=== PATIENT | male | born 1960 | race Caucasian/White ===

== ENCOUNTER 2022-07-14 21:10 | Emergency (ER) | payer BC ==
[2022-07-14] MEDS ORDERED: Sodium Chloride 0.9% 10 ML Syringe FLUSH PRN (21:18)
[2022-07-14 21:33] LABS: BASOPHILS PERCENT AUTO 0.2 % (0.0-1.0); EOSINOPHILS PERCENT AUTO 2.7 % (1.0-3.0); HEMATOCRIT 32.4 % (40.0-54.0); HEMOGLOBIN 9.9 g/dL (14.0-18.0); LYMPHOCYTES PERCENT AUTO 13.1 % (20.5-50.1); MEAN CORPUSCULAR HEMOGLOBIN 27.3 pg (27.0-34.0); MEAN CORPUSCULAR HGB CONC 30.6 g/dL (33.0-35.0); MEAN CORPUSCULAR VOLUME 89.5 fL (80-100); PLATELET COUNT,PLT 192 10^3/uL (150-450); RED BLOOD CELL COUNT 3.62 10^6/uL (4.6-6.2); WHITE BLOOD CELL COUNT,WBC 8.6 10^3/uL (5.0-10.0)
[2022-07-14 21:50] LABS: INR 1.4 (0.9-1.2); PROTHROMBIN TIME 14.4 SEC (9.0-12.0); PTT,PARTIAL THROMBOPLSTIN TIME 27.9 SEC (22.0-34.0)
[2022-07-14 21:57] LABS: ANION GAP 8.7 mEq/L (7-13); BILIRUBIN TOTAL 0.8 mg/dL (0.2-1.0); BUN/CREATININE RATIO 26.1 (No establ ref range); CALCIUM 8.3 mg/dL (8.5-10.1); CREATININE 1.53 mg/dL (0.70-1.30); EST CRCL DRUG DOSING (CG) 54.95 mL/min; MAGNESIUM 2.1 mg/dL (1.8-2.4); POTASSIUM,K 3.7 mmol/L (3.5-5.1); PROTEIN TOTAL,TP 6.8 g/dL (6.4-8.2)
[2022-07-14 21:59] LABS: A/G RATIO 0.79
[2022-07-14 22:00] LABS: LACTIC ACID 2.4 mmol/L (0.4-2.0)
[2022-07-14] MEDS ORDERED: Iopamidol 755 Mg/ML 100 ML Bottle IVPUSH ONE ×2 (22:00→22:02)
[2022-07-14 23:11] VITALS: BP 115/68; PULSE 93
[2022-07-14 23:27] LABS: APPEARANCE,URINE CLEAR (CLEAR); BILIRUBIN,URINE NEGATIVE (NEGATIVE); COLOR,URINE YELLOW (YELLOW); GLUCOSE,URINE NEGATIVE (NEGATIVE); KETONES,URINE NEGATIVE (NEGATIVE); LEUKOCYTE ESTERASE,URINE NEGATIVE (NEGATIVE); NITRITE,URINE NEGATIVE (NEGATIVE); OCCULT BLOOD,URINE NEGATIVE (NEGATIVE); PROTEIN,URINE NEGATIVE (NEGATIVE); UROBILINOGEN,URINE 0.2 mg/dL (0.2-1.0)
[2022-07-15] MEDS ORDERED: Sodium Chloride 0.9% 1,000 ML IV ONE (00:50)
[2022-07-15] MEDS ORDERED: Heparin Sodium 5,000 Units/ML Vial IVPUSH ONE (01:02)
[2022-07-15] MEDS ORDERED: Heparin Sodium/0.45% NaCl 25,000 UNITS/500 ML BAG IV SCH (01:15)
== END 2022-07-15 01:46 ==
LOC: DL.ED 21:10
DX: R18.8 Other ascites (principal); N17.9 Acute kidney failure, unspecified; R06.00 Dyspnea, unspecified; R79.1 Abnormal coagulation profile; R93.7 Abnormal findings on diagnostic imaging of other parts of musculoskeletal system; I87.2 Venous insufficiency (chronic) (peripheral); K76.0 Fatty (change of) liver, not elsewhere classified; E66.01 Morbid (severe) obesity due to excess calories; I48.91 Unspecified atrial fibrillation; I13.0 Hypertensive heart and chronic kidney disease with heart failure and stage 1 through stage 4 chronic kidney disease, or unspecified chronic kidney disease; E11.22 Type 2 diabetes mellitus with diabetic chronic kidney disease; N18.2 Chronic kidney disease, stage 2 (mild); I50.9 Heart failure, unspecified; M19.90 Unspecified osteoarthritis, unspecified site; Z88.8 Allergy status to other drugs, medicaments and biological substances; Z79.01 Long term (current) use of anticoagulants; Z79.82 Long term (current) use of aspirin; Z79.4 Long term (current) use of insulin; Z79.899 Other long term (current) drug therapy; Z95.5 Presence of coronary angioplasty implant and graft; Z95.0 Presence of cardiac pacemaker; Z68.44 Body mass index [BMI] 60.0-69.9, adult
CPT/HCPCS: 36415; 71260; 74177; 80053; 81003; 82150; 83605; 83690; 83735; 83880; 84145; 84484; 85025; 85610; 85730; 86140; 87040; 93005; 93010; 96365; 96376; 99285; 99285-25; J1644; J7030; Q9967

== ENCOUNTER 2022-12-23 18:50 | Inpatient (IN) | payer BC ==
[2022-12-23] MEDS ORDERED: Sodium Chloride 0.9% 10 ML Syringe FLUSH PRN (18:58)
[2022-12-23 19:16] LABS: HEMATOCRIT 32.5 % (40.0-54.0); HEMOGLOBIN 10.1 g/dL (14.0-18.0); MEAN CORPUSCULAR HEMOGLOBIN 28.2 pg (27.0-34.0); MEAN CORPUSCULAR HGB CONC 31.1 g/dL (33.0-35.0); MEAN CORPUSCULAR VOLUME 90.8 fL (80-100); PLATELET COUNT,PLT 259 10^3/uL (150-450); RED BLOOD CELL COUNT 3.58 10^6/uL (4.6-6.2); WHITE BLOOD CELL COUNT,WBC 8.5 10^3/uL (5.0-10.0)
[2022-12-23 19:25] LABS: BASOPHILS PERCENT AUTO 0.2 % (0.0-1.0); EOSINOPHILS PERCENT AUTO 3.4 % (1.0-3.0); MONOCYTES PERCENT AUTO 10.8 % (2-8)
[2022-12-23 19:26] LABS: EOSINOPHILS PERCENT MAN 4 % (1-3); LYMPHOCYTES PERCENT MAN 12 % (20-50); MONOCYTES PERCENT MAN 4 % (2-8); SEG NEUTROPHILS PERCENT MAN 80 % (42-75)
[2022-12-23 19:31] LABS: A/G RATIO 0.55; ALBUMIN 2.7 g/dL (3.4-5.0); ANION GAP 12.3 mEq/L (7-13); BILIRUBIN TOTAL 0.5 mg/dL (0.2-1.0); BUN/CREATININE RATIO 24.7 (No establ ref range); C-REACTIVE PROTEIN 3.37 ng/dL (<=0.30); CALCIUM 8.9 mg/dL (8.5-10.1); CREATININE 1.98 mg/dL (0.70-1.30); EST CRCL DRUG DOSING (CG) 41.91 mL/min; MAGNESIUM 2.5 mg/dL (1.8-2.4); POTASSIUM,K 4.3 mmol/L (3.5-5.1); PROTEIN TOTAL,TP 7.6 g/dL (6.4-8.2)
[2022-12-23 19:34] LABS: LACTIC ACID 1.6 mmol/L (0.4-2.0)
[2022-12-23] MEDS ORDERED: 50% Dextrose in Water 50 ML Syringe IVPUSH ONE (20:24)
[2022-12-23 20:26] LABS: INR 1.7 (0.9-1.2); PROTHROMBIN TIME 16.7 SEC (9.0-12.0)
[2022-12-23] MEDS ORDERED: Albuterol/Ipratropium 3.0-0.5 MG/3 ML Neb Soln NEB PRN (20:32)
[2022-12-23] MEDS ORDERED: HYDROmorphone 0.5 MG/0.5 ML Syringe IVPUSH PRN (20:32)
[2022-12-23] MEDS ORDERED: Acetaminophen/oxyCODONE 325-5 MG Tab PO PRN (20:32)
[2022-12-23] MEDS ORDERED: Naloxone 2 MG/2 ML Syringe IVPUSH PRN (20:32)
[2022-12-23] MEDS ORDERED: Ondansetron 4 MG/2 ML SDV IVPUSH PRN (20:32)
[2022-12-23] MEDS ORDERED: Albuterol 6.7 GM Inhaler INH PRN (20:39)
[2022-12-23] MEDS ORDERED: Glucagon,Human Recombinant 1 MG Vial IM PRN (20:42)
[2022-12-23] MEDS ORDERED: 50% Dextrose in Water 50 ML Syringe IVPUSH PRN (20:42)
[2022-12-23] MEDS ORDERED: Furosemide 100 MG in Sodium Chloride 0.9% 90 ML IV SCH (20:45)
[2022-12-23] MEDS ORDERED: Heparin Sodium 5,000 Units/ML Vial SUBCUT ONE (21:01)
[2022-12-23 21:04] LABS: T4 FREE 0.83 ng/dL (0.76-1.46); TSH ULTRASENSITIVE 4.12 uIU/mL (0.36-3.74)
[2022-12-23 21:55] LABS: APPEARANCE,URINE CLEAR (CLEAR); BILIRUBIN,URINE NEGATIVE (NEGATIVE); COLOR,URINE DARK YELLOW (YELLOW); GLUCOSE,URINE NEGATIVE (NEGATIVE); KETONES,URINE NEGATIVE (NEGATIVE); LEUKOCYTE ESTERASE,URINE NEGATIVE (NEGATIVE); NITRITE,URINE NEGATIVE (NEGATIVE); OCCULT BLOOD,URINE NEGATIVE (NEGATIVE); PH,URINE 5.5 (5.0-9.0); PROTEIN,URINE NEGATIVE (NEGATIVE); UROBILINOGEN,URINE 0.2 mg/dL (0.2-1.0)
[2022-12-23 21:57] LABS: BENZODIAZEPINE,URINE NEGATIVE (NEGATIVE); MDMA (ECSTASY), URINE NEGATIVE (NEGATIVE); METHADONE,URINE NEGATIVE (NEGATIVE); METHAMPHETAMINES,URINE NEGATIVE (NEGATIVE); OPIATES,URINE NEGATIVE (NEGATIVE)
[2022-12-23 21:58] LABS: AMPHETAMINES,URINE NEGATIVE (NEGATIVE); BARBITURATES,URINE NEGATIVE (NEGATIVE); OXYCODONE,URINE NEGATIVE (NEGATIVE); PHENCYCLIDINE,URINE NEGATIVE (NEGATIVE); TCA,URINE NEGATIVE (NEGATIVE)
[2022-12-23 22:58] LABS: BACTERIA,URINE RARE /HPF (0-FEW/HPF); EPITHELIAL CELLS,URINE FEW /HPF (NOT SEEN); RBC,URINE 0-5 /HPF (0-5); WBC,URINE 0-5 /HPF (0-5/HPF)
[2022-12-23] MEDS: Albumin Human 25 GM in Premix Bag 1 BAG IV SCH (23:00)
[2022-12-23] MEDS: Potassium Chloride 10 MEQ Tab.ER PO SCH (23:00)
[2022-12-23] MEDS ORDERED: Dextrose 5%-0.9% NaCl 1,000 ML IV SCH (23:45)
[2022-12-24] MEDS ORDERED: hydrALAZINE 20 MG/ML SDV IVPUSH PRN (00:17)
[2022-12-24] MEDS ORDERED: Metoprolol Tartrate 5 MG/5 ML SDV IVPUSH PRN (00:17)
[2022-12-24] MEDS: Insulin Lispro 100 Units/ML 3 ML Vial SUBCUT SCH ×13 (01:00→17:26)
[2022-12-24] MEDS: Albumin Human 25 GM in Premix Bag 1 BAG IV SCH ×4 (03:00→20:31)
[2022-12-24 05:53] LABS: BASOPHILS PERCENT AUTO 0.4 % (0.0-1.0); EOSINOPHILS PERCENT AUTO 4.3 % (1.0-3.0); HEMATOCRIT 30.4 % (40.0-54.0); HEMOGLOBIN 9.4 g/dL (14.0-18.0); LYMPHOCYTES PERCENT AUTO 13.4 % (20.5-50.1); MEAN CORPUSCULAR HGB CONC 30.9 g/dL (33.0-35.0); MEAN CORPUSCULAR VOLUME 90.5 fL (80-100); MONOCYTES PERCENT AUTO 10.2 % (2-8); NEUTROPHILS PERCENT AUTO 71.7 % (42.2-75.2); PLATELET COUNT,PLT 252 10^3/uL (150-450); RED BLOOD CELL COUNT 3.36 10^6/uL (4.6-6.2); WHITE BLOOD CELL COUNT,WBC 7.5 10^3/uL (5.0-10.0)
[2022-12-24 06:02] LABS: INR 1.7 (0.9-1.2); PROTHROMBIN TIME 17.1 SEC (9.0-12.0)
[2022-12-24] MEDS: Pantoprazole 40 MG Tab.CR PO SCH ×2 (06:07→15:18)
[2022-12-24 06:10] LABS: ALBUMIN 2.9 g/dL (3.4-5.0); ANION GAP 12.6 mEq/L (7-13); BILIRUBIN TOTAL 0.6 mg/dL (0.2-1.0); BUN/CREATININE RATIO 25.6 (No establ ref range); CALCIUM 8.5 mg/dL (8.5-10.1); CREATININE 1.95 mg/dL (0.70-1.30); EST CRCL DRUG DOSING (CG) 42.56 mL/min; MAGNESIUM 2.5 mg/dL (1.8-2.4); POTASSIUM,K 4.6 mmol/L (3.5-5.1); PROTEIN TOTAL,TP 7.3 g/dL (6.4-8.2)
[2022-12-24 06:25] LABS: A/G RATIO 0.66
[2022-12-24] MEDS ORDERED: Insulin Lispro 100 Units/ML 3 ML Vial SUBCUT SCH (08:00)
[2022-12-24] MEDS ORDERED: Emollient Combination No.71 177 ML Bottle TOP PRN (08:38)
[2022-12-24] MEDS ORDERED: Levothyroxine 100 MCG Tab PO ONE (08:39)
[2022-12-24] MEDS ORDERED: Spironolactone 25 MG Tab PO SCH (09:00)
[2022-12-24] MEDS: Loratadine 10 MG Tab PO SCH (10:40)
[2022-12-24] MEDS: Digoxin 250 MCG Tab PO SCH (10:41)
[2022-12-24] MEDS: Acetaminophen 325 MG Tab PO PRN ×3 (10:41→20:30)
[2022-12-24] MEDS: Sertraline 50 MG Tab PO SCH (10:43)
[2022-12-24] MEDS: Metoprolol Succinate 50 MG Tab.ER PO SCH (10:48)
[2022-12-24] MEDS: Ezetimibe 10 MG Tab PO SCH (10:49)
[2022-12-24] MEDS: Potassium Chloride 10 MEQ Tab.ER PO SCH ×3 (10:59→17:23)
[2022-12-24] MEDS ORDERED: Phytonadione 5 MG Tab ONE (11:36)
[2022-12-24] MEDS: Phytonadione 5 MG Tab PO ONE ×2 (13:07→13:17)
[2022-12-24] MEDS: Menthol 10%/Methyl Salicylate 15% 85 GM Tube TOP PRN (23:00)
[2022-12-25] MEDS: Menthol 10%/Methyl Salicylate 15% 85 GM Tube TOP PRN ×2 (04:30→22:32)
[2022-12-25 05:45] LABS: BASOPHILS PERCENT AUTO 0.4 % (0.0-1.0); EOSINOPHILS PERCENT AUTO 4.9 % (1.0-3.0); HEMATOCRIT 30.6 % (40.0-54.0); HEMOGLOBIN 9.5 g/dL (14.0-18.0); LYMPHOCYTES PERCENT AUTO 12.2 % (20.5-50.1); MEAN CORPUSCULAR VOLUME 90.3 fL (80-100); MONOCYTES PERCENT AUTO 10.4 % (2-8); NEUTROPHILS PERCENT AUTO 72.1 % (42.2-75.2); PLATELET COUNT,PLT 240 10^3/uL (150-450); RED BLOOD CELL COUNT 3.39 10^6/uL (4.6-6.2); WHITE BLOOD CELL COUNT,WBC 7.8 10^3/uL (5.0-10.0)
[2022-12-25] MEDS: Levothyroxine 150 MCG Tab PO SCH (05:49)
[2022-12-25] MEDS: Pantoprazole 40 MG Tab.CR PO SCH ×3 (05:49→15:58)
[2022-12-25 05:55] LABS: INR 1.3 (0.9-1.2); PROTHROMBIN TIME 13.4 SEC (9.0-12.0)
[2022-12-25 06:05] LABS: A/G RATIO 0.77; ALBUMIN 3.3 g/dL (3.4-5.0); ANION GAP 12.9 mEq/L (7-13); BILIRUBIN TOTAL 0.9 mg/dL (0.2-1.0); CALCIUM 8.4 mg/dL (8.5-10.1); CREATININE 1.96 mg/dL (0.70-1.30); EST CRCL DRUG DOSING (CG) 42.34 mL/min; MAGNESIUM 2.6 mg/dL (1.8-2.4); POTASSIUM,K 4.9 mmol/L (3.5-5.1); PROTEIN TOTAL,TP 7.6 g/dL (6.4-8.2)
[2022-12-25] MEDS: Potassium Chloride 10 MEQ Tab.ER PO SCH ×3 (08:16→17:18)
[2022-12-25] MEDS: Insulin Lispro 100 Units/ML 3 ML Vial SUBCUT SCH ×3 (08:17→17:19)
[2022-12-25] MEDS: Ezetimibe 10 MG Tab PO SCH (10:22)
[2022-12-25] MEDS: Sertraline 50 MG Tab PO SCH (10:23)
[2022-12-25] MEDS: Loratadine 10 MG Tab PO SCH (10:23)
[2022-12-25] MEDS: Digoxin 250 MCG Tab PO SCH (10:23)
[2022-12-25] MEDS: Metoprolol Succinate 50 MG Tab.ER PO SCH (10:24)
[2022-12-25] MEDS: Acetaminophen 325 MG Tab PO PRN ×2 (17:45→22:03)
[2022-12-26] MEDS: Levothyroxine 150 MCG Tab PO SCH (05:57)
[2022-12-26] MEDS: Pantoprazole 40 MG Tab.CR PO SCH ×2 (05:57→15:28)
[2022-12-26 06:31] LABS: BASOPHILS PERCENT AUTO 0.2 % (0.0-1.0); EOSINOPHILS PERCENT AUTO 5.8 % (1.0-3.0); HEMATOCRIT 30.6 % (40.0-54.0); HEMOGLOBIN 9.5 g/dL (14.0-18.0); MEAN CORPUSCULAR HEMOGLOBIN 28.1 pg (27.0-34.0); MEAN CORPUSCULAR VOLUME 90.5 fL (80-100); PLATELET COUNT,PLT 237 10^3/uL (150-450); RED BLOOD CELL COUNT 3.38 10^6/uL (4.6-6.2); WHITE BLOOD CELL COUNT,WBC 8.8 10^3/uL (5.0-10.0)
[2022-12-26 06:41] LABS: INR 1.2 (0.9-1.2); PROTHROMBIN TIME 12.5 SEC (9.0-12.0)
[2022-12-26 06:46] LABS: ALBUMIN 3.1 g/dL (3.4-5.0); ANION GAP 14.3 mEq/L (7-13); BILIRUBIN TOTAL 1.1 mg/dL (0.2-1.0); BUN/CREATININE RATIO 28.8 (No establ ref range); CALCIUM 8.4 mg/dL (8.5-10.1); CREATININE 1.84 mg/dL (0.70-1.30); EST CRCL DRUG DOSING (CG) 45.1 mL/min; MAGNESIUM 2.7 mg/dL (1.8-2.4); POTASSIUM,K 5.3 mmol/L (3.5-5.1); PROTEIN TOTAL,TP 7.5 g/dL (6.4-8.2)
[2022-12-26 06:54] LABS: A/G RATIO 0.7
[2022-12-26] MEDS: Insulin Lispro 100 Units/ML 3 ML Vial SUBCUT SCH ×3 (08:13→16:50)
[2022-12-26] MEDS: Ezetimibe 10 MG Tab PO SCH (08:15)
[2022-12-26] MEDS: Menthol 10%/Methyl Salicylate 15% 85 GM Tube TOP PRN ×2 (08:15→15:30)
[2022-12-26] MEDS: Sertraline 50 MG Tab PO SCH (08:16)
[2022-12-26] MEDS: Loratadine 10 MG Tab PO SCH (08:16)
[2022-12-26] MEDS: Metoprolol Succinate 50 MG Tab.ER PO SCH (08:16)
[2022-12-26] MEDS: Digoxin 250 MCG Tab PO SCH (08:17)
[2022-12-26] MEDS: Potassium Chloride 10 MEQ Tab.ER PO SCH ×2 (08:17→12:29)
[2022-12-26] MEDS: Acetaminophen 325 MG Tab PO PRN (13:54)
[2022-12-26] MEDS ORDERED: Lidocaine 1% 5 ML VIAL INJECT ONE (14:43)
[2022-12-26] MEDS ORDERED: Lidocaine 1% 5 ML VIAL ONE (14:45)
[2022-12-26] MEDS: Albumin Human 25 GM in Premix Bag 1 BAG IV SCH ×2 (14:54→19:52)
[2022-12-26] MEDS ORDERED: cefTRIAXone 2 GM Vial IVPUSH ONE (16:12)
[2022-12-27] MEDS: Albumin Human 25 GM in Premix Bag 1 BAG IV SCH ×2 (02:00→08:17)
[2022-12-27] MEDS: Pantoprazole 40 MG Tab.CR PO SCH ×3 (04:48→15:43)
[2022-12-27] MEDS: Levothyroxine 150 MCG Tab PO SCH ×2 (04:48→05:34)
[2022-12-27 06:33] LABS: HEMATOCRIT 30.1 % (40.0-54.0); HEMOGLOBIN 9.3 g/dL (14.0-18.0); MEAN CORPUSCULAR HEMOGLOBIN 28.1 pg (27.0-34.0); MEAN CORPUSCULAR HGB CONC 30.9 g/dL (33.0-35.0); MEAN CORPUSCULAR VOLUME 90.9 fL (80-100); PLATELET COUNT,PLT 232 10^3/uL (150-450); RED BLOOD CELL COUNT 3.31 10^6/uL (4.6-6.2); WHITE BLOOD CELL COUNT,WBC 8.9 10^3/uL (5.0-10.0)
[2022-12-27 06:37] LABS: BASOPHILS PERCENT AUTO 0.6 % (0.0-1.0); EOSINOPHILS PERCENT AUTO 6.3 % (1.0-3.0); LYMPHOCYTES PERCENT AUTO 9.3 % (20.5-50.1); MONOCYTES PERCENT AUTO 9.8 % (2-8)
[2022-12-27 06:47] LABS: INR 1.2 (0.9-1.2); PROTHROMBIN TIME 12.5 SEC (9.0-12.0)
[2022-12-27 06:55] LABS: ALBUMIN 3.3 g/dL (3.4-5.0); ANION GAP 13.7 mEq/L (7-13); CALCIUM 8.4 mg/dL (8.5-10.1); CREATININE 1.81 mg/dL (0.70-1.30); EST CRCL DRUG DOSING (CG) 45.85 mL/min; MAGNESIUM 2.8 mg/dL (1.8-2.4); POTASSIUM,K 5.7 mmol/L (3.5-5.1); PROTEIN TOTAL,TP 7.3 g/dL (6.4-8.2)
[2022-12-27 06:56] LABS: A/G RATIO 0.83
[2022-12-27 07:07] LABS: BAND PERCENT MAN 5 %; BASOPHILS PERCENT MAN 2; EOSINOPHILS PERCENT MAN 7 % (1-3); LYMPHOCYTES PERCENT MAN 8 % (20-50); METAMYELOCYTE PERCENT MAN 1; MONOCYTES PERCENT MAN 9 % (2-8); MYELOCYTE PERCENT MAN 1; PLATELET COUNT ESTIMATE ADEQUATE; SEG NEUTROPHILS PERCENT MAN 67 % (42-75)
[2022-12-27] MEDS: Insulin Lispro 100 Units/ML 3 ML Vial SUBCUT SCH ×3 (08:07→16:07)
[2022-12-27] MEDS: Ezetimibe 10 MG Tab PO SCH (08:09)
[2022-12-27] MEDS: Metoprolol Succinate 50 MG Tab.ER PO SCH (08:10)
[2022-12-27] MEDS: Sertraline 50 MG Tab PO SCH (08:10)
[2022-12-27] MEDS: Loratadine 10 MG Tab PO SCH (08:10)
[2022-12-27] MEDS: Digoxin 250 MCG Tab PO SCH (08:10)
[2022-12-27] MEDS ORDERED: Non-Formulary Medication 1 Each (Sacubitril/Valsartan 1 EACH Tablet) PO SCH (09:00)
[2022-12-27] MEDS ORDERED: Bumetanide 1 MG Tab PO SCH (09:00)
[2022-12-27] MEDS: cefTRIAXone 2 GM Vial IVPUSH SCH (09:23)
[2022-12-27] MEDS ORDERED: Warfarin 5 MG Tab PO SCH (14:00)
[2022-12-27] MEDS: Acetaminophen 325 MG Tab PO PRN (20:25)
[2022-12-27] MEDS: Bumetanide 1 MG Tab PO SCH (20:25)
[2022-12-28] MEDS: Acetaminophen 325 MG Tab PO PRN (00:59)
[2022-12-28] MEDS: Levothyroxine 150 MCG Tab PO SCH (05:17)
[2022-12-28] MEDS: Pantoprazole 40 MG Tab.CR PO SCH (05:17)
[2022-12-28 06:13] LABS: BASOPHILS PERCENT AUTO 0.4 % (0.0-1.0); EOSINOPHILS PERCENT AUTO 6.2 % (1.0-3.0); HEMATOCRIT 29.6 % (40.0-54.0); HEMOGLOBIN 9.2 g/dL (14.0-18.0); MEAN CORPUSCULAR HEMOGLOBIN 28.2 pg (27.0-34.0); MEAN CORPUSCULAR HGB CONC 31.1 g/dL (33.0-35.0); MEAN CORPUSCULAR VOLUME 90.8 fL (80-100); MONOCYTES PERCENT AUTO 9.6 % (2-8); NEUTROPHILS PERCENT AUTO 72.8 % (42.2-75.2); PLATELET COUNT,PLT 224 10^3/uL (150-450); RED BLOOD CELL COUNT 3.26 10^6/uL (4.6-6.2); WHITE BLOOD CELL COUNT,WBC 8.4 10^3/uL (5.0-10.0)
[2022-12-28 06:24] LABS: ALBUMIN 3.1 g/dL (3.4-5.0); ANION GAP 14.9 mEq/L (7-13); BILIRUBIN TOTAL 0.6 mg/dL (0.2-1.0); BUN/CREATININE RATIO 33.5 (No establ ref range); CALCIUM 8.3 mg/dL (8.5-10.1); CREATININE 1.88 mg/dL (0.70-1.30); EST CRCL DRUG DOSING (CG) 44.14 mL/min; MAGNESIUM 2.6 mg/dL (1.8-2.4); POTASSIUM,K 3.9 mmol/L (3.5-5.1)
[2022-12-28 06:28] LABS: A/G RATIO 0.79
[2022-12-28 06:37] LABS: INR 1.2 (0.9-1.2); PROTHROMBIN TIME 12.1 SEC (9.0-12.0)
[2022-12-28] MEDS: Insulin Lispro 100 Units/ML 3 ML Vial SUBCUT SCH (08:10)
[2022-12-28] MEDS: cefTRIAXone 2 GM Vial IVPUSH SCH (08:10)
[2022-12-28] MEDS: Loratadine 10 MG Tab PO SCH (08:11)
[2022-12-28] MEDS: Bumetanide 1 MG Tab PO SCH (08:11)
[2022-12-28] MEDS: Ezetimibe 10 MG Tab PO SCH (08:12)
[2022-12-28] MEDS: Sertraline 50 MG Tab PO SCH (08:12)
[2022-12-28] MEDS: Metoprolol Succinate 50 MG Tab.ER PO SCH (08:12)
[2022-12-28] MEDS: Digoxin 250 MCG Tab PO SCH (08:13)
[2022-12-28] MEDS ORDERED: Enoxaparin 100 MG/1 ML Syringe SUBCUT ONE (10:20)
[2022-12-28 10:49] VITALS: BP 115/63; PULSE 72
== END 2022-12-28 10:50 | disposition home or self-care (01) | DRG 194 ==
LOC: DL.ED 18:50 → DL.MS 19:51
PROVIDERS: ADMIT Internal Medicine; ATTEND Internal Medicine
PROC: 0W9G3ZZ Drainage of Peritoneal Cavity, Percutaneous Approach (ICD-10-PCS; principal; 2022-12-26)
DX: I13.0 Hypertensive heart and chronic kidney disease with heart failure and stage 1 through stage 4 chronic kidney disease, or unspecified chronic kidney disease (principal); I50.23 Acute on chronic systolic (congestive) heart failure; I48.91 Unspecified atrial fibrillation; I42.9 Cardiomyopathy, unspecified; M19.90 Unspecified osteoarthritis, unspecified site; G47.33 Obstructive sleep apnea (adult) (pediatric); F41.9 Anxiety disorder, unspecified; F32.A Depression, unspecified; E66.9 Obesity, unspecified; I25.10 Atherosclerotic heart disease of native coronary artery without angina pectoris; N18.30 Chronic kidney disease, stage 3 unspecified; E11.22 Type 2 diabetes mellitus with diabetic chronic kidney disease; E78.00 Pure hypercholesterolemia, unspecified; R18.8 Other ascites; D63.1 Anemia in chronic kidney disease; E87.1 Hypo-osmolality and hyponatremia; E87.8 Other disorders of electrolyte and fluid balance, not elsewhere classified; E11.65 Type 2 diabetes mellitus with hyperglycemia; E11.649 Type 2 diabetes mellitus with hypoglycemia without coma; E87.5 Hyperkalemia; E83.42 Hypomagnesemia; E03.9 Hypothyroidism, unspecified; Z68.44 Body mass index [BMI] 60.0-69.9, adult; Z79.01 Long term (current) use of anticoagulants; Z79.899 Other long term (current) drug therapy; Z79.82 Long term (current) use of aspirin; Z98.890 Other specified postprocedural states; Z79.4 Long term (current) use of insulin; Z95.0 Presence of cardiac pacemaker; Z95.5 Presence of coronary angioplasty implant and graft; Z88.8 Allergy status to other drugs, medicaments and biological substances
CPT/HCPCS: 36415; 71045; 80053; 80305-QW; 80307; 81001; 82306; 82947; 83605; 83735; 83880; 84439; 84443; 85025; 85610; 85730; 86140; 93005; 93010; 97161-GP; 97165-GO; 99285; A9270-GY; J0696; J1170; J1815-GY; J1940; J3430; J3490; J7042; P9047

== ENCOUNTER 2023-04-17 01:44 | Emergency (ER) | payer BC ==
[2023-04-17] MEDS: Sodium Chloride 0.9% 1,000 ML IV ONE ×2 (01:58→04:34)
[2023-04-17] MEDS ORDERED: Sodium Chloride 0.9% 500 ML IV SCH (02:00)
[2023-04-17 02:14] LABS: HEMATOCRIT 28.9 % (40.0-54.0); HEMOGLOBIN 9.2 g/dL (14.0-18.0); MEAN CORPUSCULAR HEMOGLOBIN 26.5 pg (27.0-34.0); MEAN CORPUSCULAR HGB CONC 31.8 g/dL (33.0-35.0); MEAN CORPUSCULAR VOLUME 83.3 fL (80-100); PLATELET COUNT,PLT 250 10^3/uL (150-450); RED BLOOD CELL COUNT 3.47 10^6/uL (4.6-6.2)
[2023-04-17 02:18] LABS: BASOPHILS PERCENT AUTO 0.1 % (0.0-1.0); LYMPHOCYTES PERCENT AUTO 2.7 % (20.5-50.1); NEUTROPHILS PERCENT AUTO 87.2 % (42.2-75.2)
[2023-04-17 02:28] LABS: BAND PERCENT MAN 3 %; LYMPHOCYTES PERCENT MAN 2 % (20-50); MONOCYTES PERCENT MAN 4 % (2-8); SEG NEUTROPHILS PERCENT MAN 91 % (42-75)
[2023-04-17 02:32] LABS: ALANINE AMINOTRANSFERASE,ALT 11 U/L (16-63); ALBUMIN 2.7 g/dL (3.4-5.0); ALKALINE PHOSPHATASE 238 U/L (46-116); ANION GAP 19.7 mEq/L (7-13); ASPARTATE AMNIOTRANSFERASE,AST 22 U/L (15-37); BILIRUBIN TOTAL 1.5 mg/dL (0.2-1.0); BLOOD UREA NITROGEN,BUN 125 mg/dL (7-18); BUN/CREATININE RATIO 31.6 (No establ ref range); CALCIUM 8.8 mg/dL (8.5-10.1); CARBON DIOXIDE,CO2 23 mmol/L (21-32); CHLORIDE,CL 93 mmol/L (98-107); CREATININE 3.96 mg/dL (0.70-1.30); GLUCOSE RANDOM 177 mg/dL (70-99); POTASSIUM,K 4.7 mmol/L (3.5-5.1); SODIUM,NA 131 mmol/L (136-145)
[2023-04-17 02:33] LABS: A/G RATIO 0.51; ESTIMATED GFR 16 mL/min (>=60)
[2023-04-17] MEDS: Lactulose Soln 10 GM/15 ML 30 ML UD Cup PO ONE (02:44)
[2023-04-17 02:46] VITALS: BP 93/56; PULSE 103
[2023-04-17 02:59] LABS: LACTIC ACID 4.2 mmol/L (0.4-2.0)
[2023-04-17 03:44] LABS: BILIRUBIN,URINE SMALL (NEGATIVE); GLUCOSE,URINE NEGATIVE (NEGATIVE); KETONES,URINE TRACE (NEGATIVE); LEUKOCYTE ESTERASE,URINE SMALL (NEGATIVE); NITRITE,URINE NEGATIVE (NEGATIVE); OCCULT BLOOD,URINE TRACE-INTACT (NEGATIVE); PH,URINE 5.5 (5.0-9.0); PROTEIN,URINE 100 (NEGATIVE); UROBILINOGEN,URINE 0.2 mg/dL (0.2-1.0)
[2023-04-17 03:57] LABS: APPEARANCE,URINE SLIGHTLY CLOUDY (CLEAR); COLOR,URINE DARK YELLOW (YELLOW)
[2023-04-17 04:00] LABS: AMORPHOUS SEDIMENT,URINE RARE /HPF (NOT SEEN); BACTERIA,URINE MODERATE /HPF (0-FEW/HPF); EPITHELIAL CELLS,URINE FEW /HPF (NOT SEEN); MUCUS,URINE RARE /LPF (NOT SEEN); RBC,URINE 0-5 /HPF (0-5); WBC,URINE 20-30 /HPF (0-5/HPF)
[2023-04-17] MEDS: Piperacillin/Tazobactam 3.375 GM in Sodium Chloride 0.9% 100 ML IV ONE (04:33)
[2023-04-17] MEDS: Acetaminophen 500 MG Tab PO ONE (04:34)
[2023-04-17] MEDS: oxyCODONE 5 MG Tab PO ONE (05:01)
== END 2023-04-17 06:34 ==
LOC: DL.ED 01:44
DX: A41.9 Sepsis, unspecified organism (principal); I95.9 Hypotension, unspecified; R18.8 Other ascites; E11.9 Type 2 diabetes mellitus without complications; M19.90 Unspecified osteoarthritis, unspecified site; E66.9 Obesity, unspecified; I10 Essential (primary) hypertension; Z95.0 Presence of cardiac pacemaker; Z95.5 Presence of coronary angioplasty implant and graft; Z79.4 Long term (current) use of insulin; Z79.01 Long term (current) use of anticoagulants; Z79.82 Long term (current) use of aspirin; Z79.899 Other long term (current) drug therapy; Z88.8 Allergy status to other drugs, medicaments and biological substances
CPT/HCPCS: 36415; 51702; 71045; 80053; 81001; 82140; 83605; 85025; 87040; 87077; 87086; 87088; 87186; 96361; 96365; 96368; 99285; 99285-25; A9270-GY; J2543; J3370; J3490; J7030; J7050